=== PATIENT | female | born 1955 ===

== ENCOUNTER 2019-05-10 14:09 | Emergency (ER) | payer OTHER ==
[~2019-05-10] VITALS: Ht 157.5 cm; Wt 62.1 kg
== END 2019-05-10 23:35 | disposition home or self-care (01) ==
LOC: ER 14:09
DX: K29.60 Other gastritis without bleeding (principal); J11.1 Influenza due to unidentified influenza virus with other respiratory manifestations; J15.7 Pneumonia due to Mycoplasma pneumoniae